=== PATIENT | male | born 1965 | race Caucasian/White ===

== ENCOUNTER 2020-11-14 23:26 | Emergency (ER) | payer MEDICARE, OTHER ==
[~2020-11-14] VITALS: Ht 182.9 cm; Wt 54.4 kg
[~2020-11-14 23:26] MED LIST: ACET325 PO; OXYC5 PO; Silvadene20 GM TOP
[2020-11-15 02:20] LABS: Source, Urine Catheter
[2020-11-15 02:22] LABS: Bilirubin, Urine Neg (Neg); Blood, Urine 1+ (Neg); Glucose Qualitative, Urine Neg (Neg); Ketones, Urine Neg (Neg); Leukocyte Esterase, Urine 3+ (Neg); Nitrite, Urine Pos (Neg); Protein, Urine 3+ (Neg); Urobilinogen, Urine 2+ (Normal)
[2020-11-15 02:31] LABS: Appearance, Urine Cloudy (Clear); Color, Urine Yellow (P-Yellow)
[2020-11-15 02:32] LABS: Amorphous Mod (0-Heavy); Bacteria Many /hpf; Red Blood Cells, Urine 0-2 /hpf (0-2); Squamous Epithelial Cells Not Seen /hpf (Few); Triple Phosphate Crystals Mod /hpf
[2020-11-15] MEDS ORDERED: Cipro500 MG PO (02:58)
== END 2020-11-15 02:55 | disposition home or self-care (01) ==
LOC: ER 23:26
PROVIDERS: Emergency Medicine
DX: N39.0 Urinary tract infection, site not specified (principal); Z88.2 Allergy status to sulfonamides; Z88.1 Allergy status to other antibiotic agents
CPT/HCPCS: 81001; 87077; 87086; 87186; 99283; A9270

== ENCOUNTER 2021-01-11 13:43 | Inpatient (IN) | payer MEDICARE, OTHER ==
[~2021-01-11] VITALS: Ht 182.9 cm; Wt 59.0 kg
[~2021-01-11 13:43] MED LIST changes: +Cipro500 MG PO
[2021-01-11 14:44] LABS: BASOPHILS ABSOLUTE AUTO 0.07 K/mm3 (0.00-0.23); BASOPHILS PERCENT AUTO 0 % (0-2); EOSINOPHILS ABSOLUTE AUTO 0.08 K/mm3 (0.00-0.68); EOSINOPHILS PERCENT AUTO 0 % (0-6); Hematocrit 30.7 % (37.0-53.0); Hemoglobin 8.6 g/dL (13.5-17.5); IMMATURE GRAN ABSOLUTE AUTO 0.49 K/mm3 (0.00-0.10); IMMATURE GRAN PERCENT AUTO 2 % (0-1); LYMPHOCYTES ABSOLUTE AUTO 2.85 K/mm3 (0.84-5.20); LYMPHOCYTES PERCENT AUTO 12 % (21-46); MONOCYTES ABSOLUTE AUTO 1.48 K/mm3 (0.16-1.47); MONOCYTES PERCENT AUTO 6 % (4-13); Mean Corpuscular HGB 23.3 pg (26.0-34.0); Mean Corpuscular Volume 83 fL (80-100); Mean Platelet Volume 8.3 fL (9.1-12.4); NEUTROPHILS ABSOLUTE AUTO 19.53 K/mm3 (1.96-9.15); NEUTROPHILS PERCENT AUTO 80 % (41-73); RDW Coefficient Variation 21.1 % (11.7-14.2); RDW Standard Deviation 61.5 fL (35.1-46.3); Red Blood Cell Count 3.69 M/mm3 (4.30-5.90)
[2021-01-11 14:56] LABS: Albumin, Blood 1.6 g/dL (3.4-5.0); Albumin/Globulin Ratio 0.3 (0.8-1.8); Bilirubin, Total 0.4 mg/dL (0.1-1.0); Bun/Creatinine Ratio 25.7 (12.0-20.0); Creatinine, Blood 1.44 mg/dL (0.60-1.20); Globulin, Blood 4.9 g/dL (2.2-4.0); Potassium, Blood 4.1 mmol/L (3.5-5.5); Total Protein, Blood 6.5 g/dL (6.4-8.2)
[2021-01-11 15:07] LABS: Source, Urine Catheter
[2021-01-11 15:13] LABS: Platelet Count 1001 K/mm3 (150-400)
[2021-01-11 15:25] LABS: Appearance, Urine Cloudy (Clear); Blood, Urine 1+ (Neg); Color, Urine Yellow (P-Yellow); Glucose Qualitative, Urine Neg (Neg); Ketones, Urine Neg (Neg); Leukocyte Esterase, Urine 3+ (Neg); Nitrite, Urine Pos (Neg); Protein, Urine 3+ (Neg); Specific Gravity, Urine 1.015 (1.003-1.022); Urobilinogen, Urine 2+ (Normal)
[2021-01-11 15:39] LABS: Bilirubin, Urine 2+ (Neg)
[2021-01-11 15:40] LABS: White Blood Cells, Urine TNTC /hpf (0-5)
[2021-01-11 15:41] LABS: Bacteria Many /hpf; Squamous Epithelial Cells Rare /hpf (Few); Transitional Epithelial Cells Few /hpf (0-Rare); Triple Phosphate Crystals Few /hpf
[2021-01-11 15:45] LABS: SARS-Cov-2 (COVID-19) PCR, MMC NEGATIVE (NEGATIVE)
--- NOTE | 2021-01-11 19:39 | NUR ---
SHIFT SUMMARY: REPORT RECEIVED FROM ER NURSE. PT ARRIVED TO [facility] FLOOR VIA GURNEY. PT CHACECTIC, SEVERE UNSTAGEABLE WOUNDS TO COCCYX, POSTERIOR R THIGH, R STUMP, L FOOT, HEEL. PT WOUNDS CLEANSED AND DRESSINGS APPLIED. DR. BUTLER NOTIFIED OF EXTENSIVE WOUNDS FOUND. PHOTOS OF WOUND TAKEN AND PLACED IN CHART. PT REPORTS NAUSEA AND PAIN WITH REPOSITIONING. REPORT GIVEN TO ONCOMING RN.
--- NOTE | 2021-01-12 04:01 | NUR ---
PHYSICIAN COMMUNICATION CONTACTED COMIC BOOK ARTIST PHYSICIAN, DR DUDLEY, TO NOTIFY HIM THAT THE PATIENT IS HYPOTENSIVE AT 86/50 WITH SEPSIS AND EXTENSIVE WOUNDS. DR DUDLEY ORDERED A 500 ML BOLUS.
[2021-01-12 05:42] LABS: BASOPHILS ABSOLUTE AUTO 0.04 K/mm3 (0.00-0.23); BASOPHILS PERCENT AUTO 0 % (0-2); EOSINOPHILS ABSOLUTE AUTO 0.13 K/mm3 (0.00-0.68); EOSINOPHILS PERCENT AUTO 1 % (0-6); Hematocrit 21.8 % (37.0-53.0); Hemoglobin 6.4 g/dL (13.5-17.5); IMMATURE GRAN ABSOLUTE AUTO 0.37 K/mm3 (0.00-0.10); IMMATURE GRAN PERCENT AUTO 3 % (0-1); LYMPHOCYTES ABSOLUTE AUTO 1.82 K/mm3 (0.84-5.20); LYMPHOCYTES PERCENT AUTO 13 % (21-46); MONOCYTES ABSOLUTE AUTO 1.07 K/mm3 (0.16-1.47); MONOCYTES PERCENT AUTO 8 % (4-13); Mean Corpuscular HGB 24.2 pg (26.0-34.0); Mean Corpuscular HGB Conc 29.4 g/dL (31.5-36.5); Mean Corpuscular Volume 82 fL (80-100); Mean Platelet Volume 8.3 fL (9.1-12.4); NEUTROPHILS ABSOLUTE AUTO 10.42 K/mm3 (1.96-9.15); NEUTROPHILS PERCENT AUTO 75 % (41-73); Platelet Count 711 K/mm3 (150-400); RDW Coefficient Variation 20.6 % (11.7-14.2); RDW Standard Deviation 60.7 fL (35.1-46.3); Red Blood Cell Count 2.65 M/mm3 (4.30-5.90); White Blood Cell Count 13.85 K/mm3 (4.00-11.30)
[2021-01-12 06:14] LABS: Anion Gap 8 mmol/L (6-16); Blood Urea Nitrogen 28 mg/dL (8-24); CO2, Blood 21 mmol/L (21-32); Calcium, Blood 6.7 mg/dL (8.5-10.1); Chloride, Blood 107 mmol/L (98-108); Glomerular Filtration Rate >60 (60-); Glucose, Blood 83 mg/dL (70-99); Potassium, Blood 3.5 mmol/L (3.5-5.5); Sodium, Blood 136 mmol/L (136-145)
--- NOTE | 2021-01-12 07:25 | NUR ---
SHIFT SUMMARY PATIENT ALERT AND ORIENTED X3. MEDICATED PER EMAR FOR PAIN. WAS ADMINISTERED A 500 ML BOLUS OF NORMAL SALINE FOR HYPOTENSION. IVP ATENT AND INFUSING. BED IN LOWEST POSITION WITH WHEELS LOCKED AND ALARM ON. CALL LIGHT WITHIN REACH. REPORT GIVEN TO ONCOMING RN.
--- NOTE | 2021-01-12 15:19 | NUR ---
PER BLOOD BANK BLOOD COMING FROM [place], [facility] UNABLE TO DELIVER TODAY. PER DR GREGORIA HAMLIN FOR PT TO BE TRANSFUSED TOMORROW 01/13.
--- NOTE | 2021-01-12 16:21 | NUR ---
PT IS AOX3 WITH CONFUSION. PT NEEDS HELP Q2 HRS TO CHANGE POSITION. PT TOLERATING CARE. TREATED FOR PAIN PER EMAR. PT HAS HGB 6.4 BLOOD BANK HAS TO SEND FOR BLOOD FROM [place] AND IT WILL BE TRANSFUSED 01/13/21 AND WAS APPROVED BY DR KINNEY FOR DELAY OF TRANSFUSION. PT CALLS APPROPRIATELY. CALL LIGHT IS WITHIN REACH WILL CONTNINUE TO MONITOR.
--- NOTE | 2021-01-13 06:02 | NUR ---
SHIFT SUMMARY PATIENT ALERT AND ORIENTED X3. MEDICATED PER EMAR FOR PAIN AND HEARTBURN. NO COMPLAINTS OF SHORTNESS OF BREATH. PATIENT REPORTED HAVING BLADDER SPASMS AND THAT HE THOUGHT IT WAS DUE TO HIS CATHETER NOT DRAINING PROPERLY. JOHNNIE WEATHERS ASSESSED AND FLUSHED CATHETER WITH GOOD RETURN. BLADDER SCAN SHOWED NO URINE RETAINED IN BLADDER. IV PATENT AND INFUSING. IV PATENT AND FLUSHED. BED IN LOWEST POSITION WITH WHEELS LOCKED AND ALARM ON. CALL LIGHT WITHIN REACH. REPORT GIVEN TO ONCOMING RN.
[2021-01-13 06:52] LABS: Hematocrit 23.5 % (37.0-53.0); Hemoglobin 6.9 g/dL (13.5-17.5); Mean Corpuscular HGB 24.1 pg (26.0-34.0); Mean Corpuscular HGB Conc 29.4 g/dL (31.5-36.5); Mean Corpuscular Volume 82 fL (80-100); Mean Platelet Volume 8.5 fL (9.1-12.4); Platelet Count 634 K/mm3 (150-400); RDW Standard Deviation 62.4 fL (35.1-46.3); Red Blood Cell Count 2.86 M/mm3 (4.30-5.90); White Blood Cell Count 9.41 K/mm3 (4.00-11.30)
[2021-01-13 07:35] LABS: Alanine Aminotransfer (ALT/SGP 10 U/L (12-78); Albumin, Blood 1.2 g/dL (3.4-5.0); Albumin/Globulin Ratio 0.3 (0.8-1.8); Alk Phos 117 U/L (50-136); Anion Gap 7 mmol/L (6-16); Aspartate Aminotrans (AST/SGOT 10 U/L (12-37); Bilirubin, Total 0.2 mg/dL (0.1-1.0); Blood Urea Nitrogen 23 mg/dL (8-24); Bun/Creatinine Ratio 32.2 (12.0-20.0); CO2, Blood 25 mmol/L (21-32); Chloride, Blood 106 mmol/L (98-108); Creatinine, Blood 0.71 mg/dL (0.60-1.20); Ferritin, Serum 82 ng/mL (26-388); Globulin, Blood 3.9 g/dL (2.2-4.0); Glomerular Filtration Rate >60 (60-); Glucose, Blood 96 mg/dL (70-99); Iron Serum 9 ug/dL (65-175); Percent Saturation 6.2 % (20.0-50.0); Potassium, Blood 3.7 mmol/L (3.5-5.5); Sodium, Blood 138 mmol/L (136-145); Total Iron Binding Capacity 144 ug/dL (250-450); Total Protein, Blood 5.1 g/dL (6.4-8.2)
[2021-01-13 15:31] LABS: Vancomycin, Trough 9.1 ug/mL (5.0-10.0)
--- NOTE | 2021-01-13 18:13 | NUR ---
SHIFT SUMMARY PATIENT A/O SLOW TO RESPOND AT TIMES. PATIENT RECEIVED 1 UNIT OF PRBCS TODAY. A NEW IV WAS PLACED IN THE LEFT FOREARM. PATIENT HAS BEEN MEDICATED FOR BLADDER SPASMS AND PAIN PER MAR THROUGHOUT SHIFT. PATIENT IS ON 2 LITERS VIA NASAL CANNULA. VITAL SIGNS STABLE, BED IN LOWEST POSITION AND CALL LIGHT WITHIN REACH.
--- NOTE | 2021-01-14 06:35 | NUR ---
SHIFT SUMMARY PATIENT ALERT AND ORIENTED X3. MEDICATED PER EMAR FOR PAIN AND NAUSEA. PATIENT'S TALAMANTES CHANGED DUE TO LEAKING AND DISLODGEMENT. IV PATENT AND INFUSING. BED IN LOWEST POSITION WITH WHEELS LOCKED AND ALARM ON. CALL LIGHT WITHIN REACH. REPORT GIVEN TO ONCOMING RN.
[2021-01-14 06:40] LABS: Hematocrit 30.8 % (37.0-53.0); Hemoglobin 9.3 g/dL (13.5-17.5); Mean Corpuscular HGB 25.1 pg (26.0-34.0); Mean Corpuscular HGB Conc 30.2 g/dL (31.5-36.5); Mean Corpuscular Volume 83 fL (80-100); Mean Platelet Volume 8.4 fL (9.1-12.4); Platelet Count 557 K/mm3 (150-400); RDW Coefficient Variation 20.1 % (11.7-14.2); RDW Standard Deviation 61.1 fL (35.1-46.3); White Blood Cell Count 12.07 K/mm3 (4.00-11.30)
[2021-01-14 07:00] LABS: Alanine Aminotransfer (ALT/SGP 9 U/L (12-78); Albumin, Blood 1.2 g/dL (3.4-5.0); Albumin/Globulin Ratio 0.3 (0.8-1.8); Alk Phos 113 U/L (50-136); Anion Gap 3 mmol/L (6-16); Aspartate Aminotrans (AST/SGOT 9 U/L (12-37); Bilirubin, Total 0.3 mg/dL (0.1-1.0); Blood Urea Nitrogen 15 mg/dL (8-24); Bun/Creatinine Ratio 27.3 (12.0-20.0); CO2, Blood 29 mmol/L (21-32); Calcium, Blood 6.6 mg/dL (8.5-10.1); Chloride, Blood 106 mmol/L (98-108); Creatinine, Blood 0.55 mg/dL (0.60-1.20); Globulin, Blood 4.2 g/dL (2.2-4.0); Glomerular Filtration Rate >60 (60-); Glucose, Blood 106 mg/dL (70-99); Sodium, Blood 138 mmol/L (136-145); Total Protein, Blood 5.4 g/dL (6.4-8.2)
--- NOTE | 2021-01-14 08:17 | NUR ---
NOTIFIED URINE POS FOR ESBL. ON ZOSYN AND VANCO
[2021-01-14 17:03] LABS: Vancomycin, Trough 13.3 ug/mL (5.0-10.0)
--- NOTE | 2021-01-14 19:17 | NUR ---
ALERT. SLEEPING MOST OF DAY. REFUSES TO BE TURNED BUT DOES LAY ON SIDE OFF OF WOUNDS. GOOD APPETITE. REPORT TO NIGHT RN
--- NOTE | 2021-01-15 05:57 | NUR ---
ARTIST MANNEQUIN COLORING CLEANSED WOUND IN RIGHT POPLITEAL AREA WITH DERMAL WOUND CLEANSER, WRAPPED WITH KERLEX AND SECURED WITH TAPE. RN CLEANSED AREA SURRONDING DECUBITIS ON BUTTOCK WITH DERMAL WOUND CLEANSER AND 4X4'S, LEFT AREA OPEN TO AIR. MODERATE YELLOW DRAINAGE NOTED FROM BUTTOCK WOUND. PT TOLERATED PROCEDURE WELL.
[2021-01-15 06:22] LABS: Hematocrit 32.6 % (37.0-53.0); Hemoglobin 9.6 g/dL (13.5-17.5); Mean Corpuscular HGB 24.8 pg (26.0-34.0); Mean Corpuscular HGB Conc 29.4 g/dL (31.5-36.5); Mean Corpuscular Volume 84 fL (80-100); Mean Platelet Volume 8.4 fL (9.1-12.4); Platelet Count 453 K/mm3 (150-400); RDW Coefficient Variation 20.4 % (11.7-14.2); RDW Standard Deviation 62.4 fL (35.1-46.3); Red Blood Cell Count 3.87 M/mm3 (4.30-5.90); White Blood Cell Count 13.66 K/mm3 (4.00-11.30)
[2021-01-15 06:49] LABS: Anion Gap 5 mmol/L (6-16); Blood Urea Nitrogen 11 mg/dL (8-24); Bun/Creatinine Ratio 18.5 (12.0-20.0); CO2, Blood 29 mmol/L (21-32); Chloride, Blood 105 mmol/L (98-108); Creatinine, Blood 0.59 mg/dL (0.60-1.20); Glomerular Filtration Rate >60 (60-); Glucose, Blood 80 mg/dL (70-99); Potassium, Blood 3.7 mmol/L (3.5-5.5); Sodium, Blood 139 mmol/L (136-145)
--- NOTE | 2021-01-15 07:50 | NUR ---
SHIFT SUMMARY WOUND CARE COMPLETED. LACTATED RINGERS INFUSING AT 100MLS/HR VIA IV. SUPRAPUBIC CATH IN PLACE AND DRAINING. PT IS ABLE TO CALL APPROPRIATELY. BED IN LOWEST POSITION, CALL LIGHT WITHIN REACH. ROOM AIR.
[2021-01-15 08:10] LABS: BAND PERCENT MAN 2 % (0-8); BASOPHILS PERCENT MAN 0 % (0-2); EOSINOPHILS ABSOLUTE MAN 1.09 K/mm3 (0.00-0.68); EOSINOPHILS PERCENT MAN 8 % (0-6); LYMPHOCYTES ABSOLUTE MAN 2.45 K/mm3 (0.84-5.20); LYMPHOCYTES PERCENT MAN 18 % (21-46); MONOCYTES ABSOLUTE MAN 0.68 K/mm3 (0.16-1.47); MONOCYTES PERCENT MAN 5 % (4-13); MYELOCYTE ABSOLUTE MAN 0.27 K/mm3 (0.00-0.00); MYELOCYTE PERCENT MAN 2 % (0-0); NEUTROPHILS ABSOLUTE MAN 9.15 K/mm3 (1.96-9.15); SEG NEUTROPHILS PERCENT MAN 65 % (41-73); TOTAL CELLS COUNTED 100
--- NOTE | 2021-01-15 19:04 | NUR ---
ALERT. ORIENTED. RESISTS TURNING. GOOD APPETITE. IV PATENT. SLEEPS MOST OF DAY. SURGICAL CONSULT CALLED IN. INFECTIOUS DISEASE CONSULT CALLED IN. UNLABORED RESPIRATIONS. REPORT TO NIGHT RN
--- NOTE | 2021-01-16 07:51 | NUR ---
SHIFT SUMMARY RN CHANGED ABD DRESSING ON PT'S DECUBITIS ULCER ON HIS BUTTOCK, LEAVING OPEN TO AIR. MODERATE DRAINAGE NOTED FROM BUTTOCK WOUND AND MULTIPLE OPEN WOUNDS ON BLE. 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 SUPRAPUBIC CATHETER DRAINING. ORTHO CONSULT PENDING. ROOM AIR. A & 0 X 3.
--- NOTE | 2021-01-16 20:07 | NUR ---
SHIFT SUMMARY: NO ACUTE EVENTS TO REPORT THIS SHIFT. PT A&O; CALM AND COOPERATIVE WITH CARE. MEDICATED FOR PAIN PER EMAR. IV ABX CONTINUING. REPORT GIVEN TO ONCOMING RN.
--- NOTE | 2021-01-17 04:09 | NUR ---
SHIFT SUMMARY ADMITTED FOR SEPSIS/CELLULITIS/OSTEOMYELITIS. DNR CODE. ALSO HAS PNEUMONIA AND UTI. LR INFUSING @ 100 ML/HR. MEDICATED FOR PAIN 2 X'S THIS SHIFT. CHRONIC TALAMANTES IN PLACE. IV ANTIB RX ARE SCHEDULED. LIVES ALONE. USES WHEELCHAIR AT BASELINE.
--- NOTE | 2021-01-17 18:04 | NUR ---
SHIFT SUMMARY PATIENT ALERT AND ORIENTED, PLEASANT AND COOPERATIVE WITH CARE. PATIENT MEDICATED FOR PAIN PER EMAR. ANTIBIOTICS INFUSING, WOUND CARE DONE THIS SHIFT. NO ACUTE CHANGES THIS SHIFT.
--- NOTE | 2021-01-18 04:01 | NUR ---
SHIFT SUMMARY ADMITTED FOR OSTEOMYELITIS OF LEFT FOOT. DNR CODE. SAMPLE SENT FOR CULTURE & GRAM STAIN AT BEGINNING OF SHIFT. LR INFUSING @ 100 ML/HR. DR MURRELL IS ID CONSULT. PT DID REQUEST PAIN MEDICATION THIS SHIFT. IV ANTIBIOTICS ARE SCHEDULED
--- NOTE | 2021-01-18 18:34 | NUR ---
SHIFT SUMMARY PATIENT ALERT AND ORIENTED, PATIENT MEDICATED PER EMAR. NO ACUTE CHANGES THIS SHIFT. PATIENT IS WAITING ON PLACEMENT. IV INFUSING LR. VITAL SIGNS STABLE. PATIENT IS RESTING.
[2021-01-19] MEDS ORDERED: FAMO20 PO (06:16)
[2021-01-19 09:38] LABS: BASOPHILS ABSOLUTE AUTO 0.06 K/mm3 (0.00-0.23); BASOPHILS PERCENT AUTO 1 % (0-2); EOSINOPHILS ABSOLUTE AUTO 0.34 K/mm3 (0.00-0.68); EOSINOPHILS PERCENT AUTO 4 % (0-6); Hematocrit 27.3 % (37.0-53.0); Hemoglobin 8.1 g/dL (13.5-17.5); Mean Corpuscular HGB 24.6 pg (26.0-34.0); Mean Corpuscular HGB Conc 29.7 g/dL (31.5-36.5); Mean Corpuscular Volume 83 fL (80-100); Mean Platelet Volume 8.9 fL (9.1-12.4); Platelet Count 296 K/mm3 (150-400); RDW Coefficient Variation 20.1 % (11.7-14.2); RDW Standard Deviation 61.3 fL (35.1-46.3); Red Blood Cell Count 3.29 M/mm3 (4.30-5.90); White Blood Cell Count 9.04 K/mm3 (4.00-11.30)
[2021-01-19 09:54] LABS: IMMATURE GRAN ABSOLUTE AUTO 0.15 K/mm3 (0.00-0.10); IMMATURE GRAN PERCENT AUTO 2 % (0-1); LYMPHOCYTES ABSOLUTE AUTO 1.81 K/mm3 (0.84-5.20); LYMPHOCYTES PERCENT AUTO 20 % (21-46); MONOCYTES PERCENT AUTO 8 % (4-13); NEUTROPHILS ABSOLUTE AUTO 5.98 K/mm3 (1.96-9.15); NEUTROPHILS PERCENT AUTO 66 % (41-73)
[2021-01-19 10:38] LABS: BASOPHILS ABSOLUTE MAN 0.09 K/mm3 (0.00-0.23); BASOPHILS PERCENT MAN 1 % (0-2); EOSINOPHILS PERCENT MAN 0 % (0-6); LYMPHOCYTES ABSOLUTE MAN 2.07 K/mm3 (0.84-5.20); LYMPHOCYTES PERCENT MAN 23 % (21-46); MONOCYTES ABSOLUTE MAN 0.27 K/mm3 (0.16-1.47); MONOCYTES PERCENT MAN 3 % (4-13); NEUTROPHILS ABSOLUTE MAN 6.59 K/mm3 (1.96-9.15); SEG NEUTROPHILS PERCENT MAN 73 % (41-73); TOTAL CELLS COUNTED 100
--- NOTE | 2021-01-19 17:09 | NUR ---
SHIFT SUMMARY PATIENT ALERT AND ORIENTED THIS SHIFT. PATIENT REMAINS BEDBOUND. PATIENT ON MULTIPLE IV ANTIBIOTICS. PATIENT DOWN FOR CT THIS AFTERNOON. PATIENT CALM AN COOPERATIVE WITH CARE THROUGHOUT THIS SHIFT. NO ACUTE CHANGES THIS SHIFT. PATIENT CURRENTLY WATCHING TELEVISION.
--- NOTE | 2021-01-20 05:13 | NUR ---
SHIFT SUMMARY MEDICATED FOR PAIN. PT RESTED MOST OF THE NIGHT . NO ACUTE CHANGES.
[2021-01-20 06:12] LABS: Hematocrit 26.2 % (37.0-53.0); Mean Corpuscular HGB 25.2 pg (26.0-34.0); Mean Corpuscular HGB Conc 30.5 g/dL (31.5-36.5); Mean Corpuscular Volume 82 fL (80-100); Platelet Count 345 K/mm3 (150-400); RDW Standard Deviation 60.3 fL (35.1-46.3); Red Blood Cell Count 3.18 M/mm3 (4.30-5.90)
[2021-01-20 06:35] LABS: Anion Gap 5 mmol/L (6-16); Blood Urea Nitrogen 8 mg/dL (8-24); Bun/Creatinine Ratio 21.6 (12.0-20.0); CO2, Blood 28 mmol/L (21-32); Calcium, Blood 7.6 mg/dL (8.5-10.1); Chloride, Blood 104 mmol/L (98-108); Creatinine, Blood 0.37 mg/dL (0.60-1.20); Glomerular Filtration Rate >60 (60-); Glucose, Blood 101 mg/dL (70-99); Potassium, Blood 3.7 mmol/L (3.5-5.5); Sodium, Blood 137 mmol/L (136-145)
[2021-01-20 06:54] LABS: BASOPHILS PERCENT MAN 0 % (0-2); EOSINOPHILS ABSOLUTE MAN 0.28 K/mm3 (0.00-0.68); EOSINOPHILS PERCENT MAN 3 % (0-6); LYMPHOCYTES ABSOLUTE MAN 1.78 K/mm3 (0.84-5.20); LYMPHOCYTES PERCENT MAN 19 % (21-46); MONOCYTES ABSOLUTE MAN 0.28 K/mm3 (0.16-1.47); MONOCYTES PERCENT MAN 3 % (4-13); NEUTROPHILS ABSOLUTE MAN 7.05 K/mm3 (1.96-9.15); SEG NEUTROPHILS PERCENT MAN 75 % (41-73); TOTAL CELLS COUNTED 100
[2021-01-20] MEDS ORDERED: Acetaminophen650 M1 PO (13:41)
[2021-01-20] MEDS ORDERED: CEPH500 PO (13:42)
[2021-01-20] MEDS ORDERED: JUVEN PACKET1 EAC3 PO (13:42)
[2021-01-20] MEDS ORDERED: DAILY-VITE TA400 MCG PO (13:43)
[2021-01-20] MEDS ORDERED: OXYB5 PO (13:44)
[2021-01-20] MEDS ORDERED: TRAM50 PO (13:44)
[2021-01-20] MEDS ORDERED: VISBIOME 112.51 EACH PO (13:45)
--- NOTE | 2021-01-20 16:20 | NUR ---
D/C SUMMARY D/C ORDERS REVIEVED, REVIEWED AND IMPLEMENTED. PT IS TO SET UP OUTPATIENT WOUND CARE IND 2X WEEK AND ESTABLISH PCP. PT VERBALILZED UNDERSTANDING AND AGREED WITH PLAN. WOUND CARE AND DRESSING CHANGE DONE PRIOR TO D/C. D/C INSTRUCTIONS, HOME MED LIST AND F/U CARE REVIEWED WITH PT, PT VERBALIZED UNDERSTANDING. PT LEFT VIA PERSONAL W/C AND WAS TRANSPORTED HOME BY [facility].
== END 2021-01-20 16:10 | disposition home or self-care (01) | DRG 853 ==
LOC: ER 13:43 → MEDS 17:14 → ENPENDDIS 01-20 11:16 → MEDS 01-20 16:10
PROVIDERS: Emergency Medicine; Internal Medicine; Pharmacist; ADMIT Family Medicine
PROC: 0QBM0ZX Excision of Left Tarsal, Open Approach, Diagnostic (ICD-10-PCS; principal; 2021-01-18)
DX: A41.51 Sepsis due to Escherichia coli [E. coli] (principal); J18.9 Pneumonia, unspecified organism; E43 Unspecified severe protein-calorie malnutrition; T87.43 Infection of amputation stump, right lower extremity; M86.8X7 Other osteomyelitis, ankle and foot; L03.116 Cellulitis of left lower limb; G82.22 Paraplegia, incomplete; R64 Cachexia; L03.115 Cellulitis of right lower limb; N17.9 Acute kidney failure, unspecified; M46.28 Osteomyelitis of vertebra, sacral and sacrococcygeal region; N39.0 Urinary tract infection, site not specified; R65.20 Severe sepsis without septic shock; L89.150 Pressure ulcer of sacral region, unstageable; Z66 Do not resuscitate; Z89.511 Acquired absence of right leg below knee; Z98.890 Other specified postprocedural states; Z88.2 Allergy status to sulfonamides; Z88.8 Allergy status to other drugs, medicaments and biological substances; D47.3 Essential (hemorrhagic) thrombocythemia; L89.890 Pressure ulcer of other site, unstageable; Z99.3 Dependence on wheelchair; D63.8 Anemia in other chronic diseases classified elsewhere; N39.498 Other specified urinary incontinence; N32.0 Bladder-neck obstruction; K21.9 Gastro-esophageal reflux disease without esophagitis
CPT/HCPCS: 36415; 36430; 51702; 71045; 72193; 73590; 73620; 80048; 80053; 80202; 81001; 82607; 82728; 82746; 83540; 83550; 83605; 85025; 85027; 85651; 85730; 86140; 86850; 86870; 86880; 86900; 86901; 86902; 86905; 86922; 87040; 87071; 87075; 87077; 87086; 87186; 87205; 93005; 93010; 96365-59; 96368; 96375-59; 99285-25; A9270; J0690; J1650; J1956; J2543; J3010; J3370; J7030; J7040; J7050; J7120; P9016; Q9967; U0004

== ENCOUNTER 2021-01-31 02:15 | Day surgery (SDC) | payer MEDICARE, OTHER ==
[~2021-01-31 02:15] MED LIST changes: +Acetaminophen650 M1 PO; +CEPH500 PO; +DAILY-VITE TA400 MCG PO; +FAMO20 PO; +JUVEN PACKET1 EAC3 PO; +OXYB5 PO; +TRAM50 PO; +VISBIOME 112.51 EACH PO
== END 2021-01-31 22:51 | disposition home or self-care (01) ==
LOC: WOUND 02:15
DX: L89.892 Pressure ulcer of other site, stage 2 (principal); L89.524 Pressure ulcer of left ankle, stage 4; L89.890 Pressure ulcer of other site, unstageable; L89.214 Pressure ulcer of right hip, stage 4; L89.154 Pressure ulcer of sacral region, stage 4; L89.322 Pressure ulcer of left buttock, stage 2; L03.90 Cellulitis, unspecified
CPT/HCPCS: G0463